=== PATIENT | male | born 1940 | race Caucasian/White ===

== ENCOUNTER → 2018-03-12 | Outpatient (CLI) | payer OTHER ==
--- NOTE | ~2018-03-12 | PATH ---
[facility] [address] [place] [address] PATHOLOGY RPT PROCEDURE Name: BENJAMIN ZAMARRIPA Room #: REG GORAN Mujica.#: [id number] Admission: 03/12/18 Date of : 42 Discharge: Report #: [id number] Path Case #: [id number] [facility] Accession Number: [id number] . 01 Material submitted: . LT PAROTID MASS/CYST . 01 Clinical history: . Left parotid mass/cyst . 02 Diagnosis: Left parotid mass/cyst, needle core biopsy: - Acinar salivary gland parenchyma admixed with adipose tissue and lymphoid tissue as well as a minute squamous epithelial fragment, please see comment. LBQ/03/15/2018 . 02 Comment: Examination shows acinar glandular cells closely intermixed with mature adipose tissue as well as adjacent lymphoid tissue. Cyst, cystic contents, cystic architecture, myxoid stroma, necrosis or atypical epithelial cellular features are not identified within the sampled tissue. A minute detached fragment of reactive squamous epithelium is present. The differential diagnosis includes a parotid gland adjacent to intraparotid lymph node, or a partially sampled cyst or malignancy amongst others. Please note sample may not be entirely provider service representative. Correlate clinically and follow-up as indicated.Case was coreviewed by Dr. Veronique Hickey and Dr. Nikolay Rangel. (IUV/db; 03/13/18) . 02 Electronically signed: . Sakina Manrique MD, Pathologist NPI- [id number] . 01 Gross description: . The specimen is received in formalin, labeled "Benjamin Zamarripa, left parotid", are several maddox-white needle cores and its fragments measuring 0.6 x 0.2 x 0.1 cm in aggregate, entirely submitted in A1. (SWS; 03/12/2018) SHS/SHS . 02 Pathologist provided ICD-10: K11.8 . 02 CPT . 084918 Specimen Comment: A courtesy [place] of [place] [address] PATHOLOGY RPT PROCEDURE Name: BENJAMIN ZAMARRIPA [id number] Admission: 03/12/18 Date of : 42 Discharge: Report #: [id number] Path Case #: [id number] Specimen Comment: [phone], . Specimen Comment: Report sent to / DR LOPEZ Performed at: [address] [facility] [address], [place], [place] [id number] MD Patrice Mirza MD Phone: [phone] Performed at: [address] [id number] MD Sakina Manrique MD Phone: [phone]
[2018-03-12 09:05] LABS: HEMOGLOBIN 18.6 gm/dL (14.0-18.0); MCH 30.6 pg (26.0-34.0); MCHC 34.4 g/dL (28.0-37.0); MCV 88.8 fL (80.0-100.0); RBC 6.08 mil/uL (4.50-6.00); RDW 12.8 % (10.5-14.5); WBC 9.6 thou/uL (4.0-11.0)
[2018-03-12 09:19] LABS: CALCIUM 9.8 mg/dL (8.5-10.1); CREATININE 0.9 mg/dL (0.7-1.3); POTASSIUM 3.9 mmol/L (3.5-5.1); TOTAL BILIRUBIN 0.7 mg/dL (<0.1-1.0); TOTAL PROTEIN 7.6 g/dL (6.4-8.2)
== END | disposition home or self-care (01) ==
LOC: RAD 08:42
PROVIDERS: Otolaryngology Plastic Surgery within the Head & Neck
DX: K11.8 Other diseases of salivary glands (principal); Z79.899 Other long term (current) drug therapy